=== PATIENT | female | born 1995 | race Caucasian/White ===

== ENCOUNTER 2020-11-07 08:56 | Emergency (ER) | payer BC, SELFPAY ==
[2020-11-07 09:03] VITALS: BP 137/92; PULSE 101; RESP 18; TEMP 36.5; O2SAT 100
--- NOTE | 2020-11-07 12:03 | ED.GENADULT ---
HPI - General Adult General Chief complaint: Skin/Abscess/Foreign Body Stated complaint: rash, leg pain Time Seen by Provider: 11/07/20 09:12 Source: patient Mode of arrival: ambulatory Limitations: no limitations History of Present Illness HPI narrative: Patient is 25 years old white female drove herself to the emergency room complaining of rash on different parts of her body mainly upper and lower extremity, hives, itching started 1 week ago. Patient denies any new medication or any new things at home. Patient also reports white blisters outside her vaginal area. Patient is , denies any extramarital affair. Denied any history of STD. Patient also complaining of right lower back and right hip pain, history of right sciatica, the pain started almost 1 week ago, worse with certain movement, better with certain position, patient denies bowel dysfunction, bladder dysfunction, altered sensation, focal weakness, or saddle numbness, Related Data Allergies Allergy/AdvReac Type Severity Reaction Status Date / Time amoxicillin AdvReac Mild vomiting Verified 11/07/20 11:48 clavulanic acid AdvReac Mild vomiting Verified 11/07/20 11:48 Review of Systems Review of Systems: Narrative: CONSTITUTIONAL: Denies fever, chills, or sweats. EYES: Denies visual changes, redness, or discharge. ENT: Denies rhinorrhea, congestion, sore throat, or otalgia. CARDIOVASCULAR: Denies chest pain, palpitations, or edema. RESPIRATORY: Denies cough or dyspnea. GASTROINTESTINAL: Denies abdominal pain, nausea, vomiting, or diarrhea. GENITOURINARY: Denies dysuria or hematuria. SKIN: Denies rash or itching. MUSCULOSKELETAL: Denies back pain, joint pain, or myalgia. NEUROLOGIC: Denies headache, numbness, or weakness. PSYCHIATRIC: Denies anxiety or depression. PMFSH Social History Social History Gender identity (if verbalized by the patient): Female Exam Narrative: Exam Narrative: General appearance: Well-developed, well-nourished Skin: Scattered hives on the upper extremities and upper back. Head: Normocephalic, nontraumatic Eyes: Clear conjunctiva ENT: Oropharynx normal, ears normal, nose normal Neck: Supple, nontender Chest and respiratory: Airway patent, no respiratory distress, no accessory muscle use Heart: Regular rate/rhythm Abdomen: Soft, nontender, no organomegaly, quiet bowel sounds Vascular: Normal peripheral pulses, normal capillary refill. Musculoskeletal: Slight limited range of motion of right hip because of pain, limited range of motion across lumbar area because of pain, diffuse tenderness across lumbar area, no bruises, no swelling or rash Neurologic: Alert and oriented ?3, IRONWORKER is normal as tested, no gross motor deficit : External Female Exam: normal external appearance, Abnormal introitus and lesion (Multiple blisters on the inner side of the labia minora bilaterally tender ) Speculum Exam - Vagina: normal appearance of the vagina Speculum Exam - Cervix: normal appearance of the cervix, normal palpation and Cervical os closed Course Course Emergency Course: Stable Reevaluation(s) Reevaluation #1: Vaginal swab was conducted to prove if the patient had herpes or not. Patient was notified that the results of the swab will be sent to her in the next 2 to 3 days. Date: 11/07/20 Time: 13:48 Vital Signs Vital signs: Vital Signs Temperature 36.5 C 11/07/20 09:03 Pulse Rate 101 H 11/07/20 09:03 Respiratory Rate 18 11/07/20 09:03 Blood Pressure 137/92 H 11/07/20 09:03 Pulse Oximetry 100 11/07/20 09:03 Temperature 36.5 C 11/07/20 09:03 Pulse Rate 76 11/07/20 12:20 Respiratory Rate 17
[2020-11-07] MEDS: EPINEPHrine HCL INJ 1 MG/ML AMPUL 0.3 MG IM (12:16)
[2020-11-07] MEDS: HYDROmorphone HCL INJ (*CRX) 1 MG/ML SYR IM (12:16)
[2020-11-07] MEDS: predniSONE 20 MG TABLET 60 MG PO (12:16)
[2020-11-07] MEDS: LORATADINE 10 MG TABLET PO (12:17)
[2020-11-07 12:20] VITALS: BP 135/89; PULSE 76; RESP 17; O2SAT 100
[2020-11-07 14:34] VITALS: BP 120/80; PULSE 85; RESP 17; O2SAT 100
[2020-11-11 02:26] LABS: Herpes Simplex Type 1 DNA PCR Not Detected (Not Detected); Herpes Simplex Type 2 DNA PCR Not Detected (Not Detected)
== END 2020-11-07 14:35 | disposition home or self-care (01) ==
PROVIDERS: Emergency Provider Emergency Medicine
DX: L30.9 Dermatitis, unspecified (principal); M54.41 Lumbago with sciatica, right side
CPT/HCPCS: 36415; 87529; 96372; 99284; A9270; J0171; J1170; J7512

== ENCOUNTER 2025-02-19 15:30 | Outpatient (CLI) | payer OTHER, SELFPAY ==
--- NOTE | ~2025-02-19 | XR_ITS ---
Left ankle Technique: AP and lateral views were obtained. Clinical History: Pain and swelling Findings: No acute fracture or dislocation is seen. Osseous alignment is anatomic. Ankle mortise and other visualized joint spaces are preserved. Prominent lateral soft tissues are noted. Impression: Marked lateral soft tissue swelling. No fracture or dislocation seen. Reviewed, dictated and finalized at location . Impression: Marked lateral soft tissue swelling. No fracture or dislocation seen.
--- OUTSIDE RECORDS SUMMARY | 2025-02-19 15:34 | XMS_ITS | Referral Summary ---
Author Organization [facility] [address] Address [address] [place] [address] Care Team Providers Care Welder Fitter Gas Name Role Phone Unknown, Shana Primary Care Provider Unavail able Allergies Active Allergy Reactions Criticality Noted Date Comments Amoxicillin-Pot Clavulanate Vomiting Low 04/19/20 24 Medications No known medications Active Problems No known active problems Social History Tobacco Use Types Packs/Day Years Used Date Smoking Tobacco: Never Assessed Personal Safety Answer Date Recorded Getting School Help Needed Not on file 04/19 Comments Unknown Sex and Gender Information Value Date Recorded Sex Assigned at Not on file Legal Sex Female 11:19 AM CDT Gender Identity Not on file Sexual Orientation Not on file Last Filed Vital Signs Vital Sign Reading Time Taken Comments Blood Pressure 153/98 04/19/2024 12:13 PM CDT Pulse 86 04/19/2024 12:13 PM CDT Temperature 37 C (98.6 F) 04/19/2024 12:13 PM CDT Respiratory Rate 20 04/19/2024 12:1 3 PM CDT Oxygen Saturation 98% 04/19/2024 12: 13 PM CDT Inhaled Oxygen Concentration - - Weight 102.3 kg (225 lb 9.6 oz) 024 12:13 PM CDT Height 175.3 cm (5' 9) 04/19/2024 12:1 3 PM CDT Body Mass Index 33.32 04/19/2024 12:13 PM CDT Plan of Treatment Not on file Care Teams Welder Fitter Gas Relationship Specialty Start Date End Date Unknown, Shana PCP - General 04/19/24
--- OUTSIDE RECORDS SUMMARY | 2025-02-19 15:34 | XMS_ITS | Clinical Summary ---
Author Organization [facility] Address [address] [place] [id number] Care Team Providers Care Aerotriangulation Specialist Name Role Phone None, Provider MD Primary Care Provider Unavaila ble Allergies Active Allergy Reactions Criticality Noted Date Comments Amoxicillin-Pot Clavulanate Nausea and Vomiting 04/19/2024 Medications diclofenac sodium (VOLTAREN) 1 % gel Apply 2 g topically 4 (four) times daily. 2 g Active HYDROcodone-anjel taminophen (NORCO) 5-325 MG tabletIndicatio ns:Acute Pain < 7 Day Supply Take 1 tablet by mouth every 6 (six) hours as needed for Pain. Indications: Acute Pain < 7 Day Supply 16 tablet Active Encounters Date Type Department Care Team Description 02/14/2025 1:00 PM CDT - 02/14/2025 2:00 PM CDT Emergency [facility] Emergency Room [address] [place] [id number] Angel Alcantar DO Ankle Pain Discharge Disposition: Home or Self Care (Routine Discharge) 02/14/2025 Travel from Last 3 Months Social History Tobacco Use Types Packs/Day Years Used Date Smoking Tobacco: Never Assessed Comments No Sex and Gender Information Value Date Recorded Sex Assigned at Not on file Legal Sex Female 3:26 PM CDT Gender Identity Not on file Sexual Orientation Not on file Last Filed Vital Signs Vital Sign Reading Time Taken Comments Blood Pressure 142/89 02/14/2025 1:08 PM CDT Pulse 98 02/14/2025 1:08 PM CDT Temperature 36.7 C (98 F) 02/14/2025 1:08 PM CDT Respiratory Rate 18 02/14/2025 1:08 PM CDT Oxygen Saturation 99% 02/14/2025 1:08 PM CDT Inhaled Oxygen Concentration - - Weight 102.1 kg (225 lb) 02/14/2025 1:08 PM CDT Height 167.6 cm (5' 6) 02/14/2025 1:08 PM CDT Body Mass Index 36.32 02/14/2025 1:08 PM CDT Plan of Treatment Health Maintenance Due Date Last Done Comments Cervical Cancer Screening Pa p Smear (Age 30 to 64) Every 3 Years 1993 Annual Physical 01/05/1996 Hepatitis C 2011 DTaP, Tdap and Td Vaccines ( 1 - Tdap) 01/05/2012 Hepatitis B Vaccines (1 of 3 - 19+ 3-dose series) 01/05/2012 HPV Vaccines (1 - 3-dose SCD M series) 01/05/2020 Cervical Cancer Screening Pa p with HPV Testing (Age 30 to 64) Every 5 Years 2023 Cervical Cancer Screening with HPV 2023 COVID-19 Vaccine ( - 2023-2 5 season) 2024 Meningococcal B Vaccine Aged Out No l onger eligible based on patient's age to complete this topic Meningococcal Vaccine Aged Out No eleuterio kai eligible based on patient's age to complete this topic Pneumococcal Vaccine: Pediat rics (0 to 5 Years) and At-Risk Patients (6 to 49 Years) Aged Out No longer eligible b ased on patient's age to complete this topic RSV Immunizations Under 20 Months Aged Out No longer eligible based on patient's age to complete this topic Procedures Procedure Name Priority Date/Time Associated Diagnosis Comments XR ANKLE LT M3V STAT 02/14/2025 1:16 PM CDT from Last 3 Months Results * XR ANKLE LT M3V (02/14/2025 1:16 PM CDT) Anatomical Region Laterality Modality Ankle Radiographic Cristal ging 02/14/2025 1:22 PM CDT Impressions 02/14/2025 1:23 PM CDT IMPRESSION: Swelling but no radiographic signs of acute fracture or dislocation. If symptoms persist, consider repeat radiographs in 7-10 days. Ordered By: ANGEL ALCANTAR Interpreted By: Nemo Smith MD, 02/14/2025 1:22 PM Narrative 02/14/2025 1:23 PM CDT [place] [address] [address] [facility] [place] [address] EXAMINATION: LEFT ANKLE RADIOGRAPH(S) Exam Date: 02/14/2025 12:51 PM INDICATION: Pain and swelling after jumping injury TECHNIQUE: 3 views. COMPARISON: None. FINDINGS: Mild to moderate to ankle swelling, asymmetrically greater laterally. No ankle dislocation. No cortical disruption in 2 views to suggest presence of an acute fracture. Punctate enthesophyte Achilles tendon insertion on the calcaneus. No traumatically embedded radiopaque foreign body or subcutaneous edema demonstrated. Limited evaluation of the partially imaged remaining lower leg and foot on this nondedicated study. Procedure Note Nemo Smith MD - 02/14/[address] [place] [address] EXAMINATION: LEFT ANKLE RADIOGRAPH(S) Exam Date: 02/14/2025 12:51 PM INDICATION: Pain and swelling after jumping injury TECHNIQUE: 3 views. COMPARISON: None. FINDINGS: Mild to moderate to ankle swelling, asymmetrically greater laterally. Noankle dislocation. No cortical disruption in 2 views to suggest presenceof an acute fracture. Punctate enthesophyte Achilles tendon insertion on the calcaneus. Notraumatically embedded radiopaque foreign body or subcutaneous edemademonstrated. Limited evaluation of the partially imaged remaining lower leg and foot onthis nondedicated study. IMPRESSION: Swelling but no radiographic signs of acute fracture or dislocation. If symptoms persist, consider repeat radiographs in 7-10 days. Ordered By: ANGEL ALCANTAR Interpreted By: Nemo Smith MD, 02/14/2025 1:22 PM us Angel Alcantar DO GENERAL IMAGING Final Res ult from Last 3 Months Insurance Care Teams Aerotriangulation Specialist Relationship Specialty Start Date End Date None, Provider, PCP - General UNKNOWN PHYSICIAN SPECIALTY 04/19/24
--- OUTSIDE RECORDS SUMMARY | 2025-02-19 15:34 | XMS_ITS | Continuity of Care Document ---
Author Organization [facility] Address [address] [place] [address] [place] [address] Phone Care Team Providers Care Dishwasher Busser Name Role Phone Darrell Banegas MD Unavailable Unavailable Allergies, Adverse Reactions, Alerts Substance Reaction Status Criticality POTASSIUM CLAVULANATE Vomiting Active No Inf ormation AMOXICILLIN TRIHYDRATE Vomiting Active No In formation Medications Medication Instructions Dosage Effective Dates (start - stop) Status Comments hydrocodone 5 mg-acetaminophen 325 mg tablet take 1 tablet by oral route every 6 hours as needed for pain as needed for ankle pain 1.00 tablet - Active PRN for pain, avoid driving or operate machines ibuprofen 800 mg tablet take 1 tablet by oral route every 6 - 8 hours with food as needed 800 MG - Active PRN for pain Advance Directives Directive Yes / No Effective Date File Name No Information Encounters Encounter Description Practice Location Reason(s) For Visit Diagnoses Date Provider Providers Copied on Encounter [facility], [address] [place], [place], [id number], [place] tel:[phone] [facility] physical (chief complaint) Encounter for general adult medical examination without abnormal findings Bassam Ramírez. [address] [place], [place], [id number], [place]. tel:[phone] Family History Family Member Type Diagnosis Age At Onset Mother Problem Alive and well Father Problem HTN Father Problem basal cell skin CA Sister Problem Alive and well Payers Payer name Insurance type Covered alliance party ID Authoriza tion(s) No Information Social History Type Description Quantity Date Captured Comments Alcohol Use Details Caffeine Use Details Unknown Tobacco Use Status Occasional cigarette smoker Smoking Status Light tobacco smoker Smoking Tobacco Use Details Cigarette: Age Started: 20, Years Used 11 Cigarette: 5 Cigarettes per day, Pack Year: 2.75 Sex Female Vital Signs Date / Time: Height Weight BMI Pulse Rate Blood Pressure Temperature Respiratory Rate Body Surface Area Head Circumference BMI percentile Pulse Ox Inhaled Ox 3:40 PM 66.00 in 193.20 lbs 31.1 8 kg/m eter (2) 98 /min 120/80 mm[Hg] 97.8 F 16 /min Chief Complaint And Reason For Visit From encounter dated '02/19/2025 15:31'. physical (chief complaint). Description: Pt needs annual physical pt jumped off a swing 6 days ago and she felt acute left ankle pain right after landing Pt also notices acute left ankle swelling as well Pt also has difficulty with weight bearing immediately afterward. SHe iced the area but did notimprove so she went to ER the next day. Pt had x ray done which showed swelling without any fracture. Pt denies any paresthesia. Pt also notices swelling and bruising around left lateral ankle and spreading to dorsal left foot. Pt denies any cold feet. Pt denies any black toes. Pt states that the pain and swelling has not improved with ice and elevation She also has been taking ibuprofen and norco without improvement . Plan Of Treatment Date Type Action Status Referral Ordered: ANKLE XRAY, TWO VIEW Left ordered Referral Ordered: MRI JNT OF LWR EXTRE W/O DYE Left ankle ordered Appointment Makayla Botello BOOKED History Of Present Illness Encounter Date Complaint History Of Prese nt Illness physical Pt needs annual physical pt jumped off a swing 6 days ago and she felt acute left ankle pain right after landing Pt also notices acute left ankle swelling as well Pt also has difficulty with weight bearing immediately afterward. SHe iced the area but did not improve so she went to ER the next day. Pt had x ray done which showed swelling without any fracture. Pt denies any paresthesia. Pt also notices swelling and bruising around left lateral ankle and spreading to dorsal left foot. Pt denies any cold feet. Pt denies any black toes. Pt states that the pain and swelling has not improved with ice and elevation She also has been taking ibuprofen and norco without improvement . Instructions Date Instruction Additional Infor radha No Information Assessments Type Assessment Date assessment Encounter for myron quan adult medical examination without abnormal findings Mental Status Date Cognitive Assessment Orientation - [place] ed to time, place, person, situation.
--- OUTSIDE RECORDS SUMMARY | 2025-02-19 15:34 | XMS_ITS | Clinical Summary ---
Author Organization [facility] [address] Address [address] [place] [address] Care Team Providers Care Rehabilitation Worker Name Role Phone Unknown, Notinfile Primary Care Provider Unavail able Allergies Active [...] 04/19/2024 12:13 PM CDT Plan of Treatment Health Maintenance Due Date Last Done Comments Cervical Cancer Screening 1993 Depression Screening 1993 Hepatitis C Screening 1993 DTaP/Tdap/Td Vaccine (1 - Tdap) 01/05/2004 Varicella Vaccines (1 of 2 - 13+ 2-dose series) 2006 Hepatitis B Screening 2011 Regular Well Visit/Exam 18-64 2011 HPV Vaccines (1 - 3-dose SCD M series) 01/05/2020 Influenza Vaccine (#1) 2025 Pneumococcal vaccine <65 Aged Out No longer eligible based on patient's age to complete this topic Care Teams Rehabilitation Worker Relationship Specialty Start Date End Date Unknown, Notinfile PCP - General 04/19/24
== END 2025-02-19 15:31 | disposition home or self-care (01) ==
PROVIDERS: Visit Provider Emergency Medicine
DX: M25.572 Pain in left ankle and joints of left foot (principal); M25.472 Effusion, left ankle; W19.XXXA Unspecified fall, initial encounter
CPT/HCPCS: 73600